=== PATIENT | male | born 1980 | race Caucasian/White ===

== ENCOUNTER 2017-03-25 14:00 | Observation (INO) | payer OTHER ==
[~2017-03-25] VITALS: Ht 185.4 cm; Wt 87.0 kg
[~2017-03-25 14:00] MED LIST: IBUP-103 PO
[2017-03-25] MEDS ORDERED: MoRPHine SULFATE 4 MG/ML 1 ML CARP\\VIAL IV STA (14:52)
[2017-03-25] MEDS ORDERED: ONDANSETRON INJ 2 MG/ML 2 ML VIAL IV STA (14:52)
[2017-03-25] MEDS ORDERED: SODIUM CHLORIDE 0.9% 1000ML 1,000 ML IV STA (14:52)
[2017-03-25 15:09] LABS: BASO % 0.4 %; BASO ABS # 0.03 K/uL (0-0.2); COMPLETE YES; EOS % 1.2 %; HEMATOCRIT 45.5 % (42-52); IG% 0.1 %; LYMPH % 39.6 %; MEAN CELL VOLUME 84.3 fL (80-100); MEAN CORPUSCULAR HEMOGLOBIN 28.3 pg (25-34); MEAN CORPUSCULAR HGB CONC 33.6 g/dl (32-36); MEAN PLATELET VOLUME 9.7 fL (7.4-10.4); MONO % 7.2 %; NEUT % 51.5 %; PLATELET COUNT 177 K/uL (130-400); WHITE BLOOD COUNT 7.82 K/uL (4.8-10.8)
[2017-03-25 15:29] LABS: BUN/CREATININE RATIO 14.9 (10-20); CALCIUM 9.5 mg/dl (8.5-10.1); CREATININE 1.1 mg/dl (0.60-1.40); POTASSIUM 4.2 mmol/L (3.5-5.1)
[2017-03-25 15:33] LABS: URINE APPEARANCE CLEAR (CLEAR); URINE BILIRUBIN NEG (NEG); URINE COLOR YELLOW; URINE NITRITE NEG (NEG); URINE PH 7.5 (4.5-7.5); URINE SPECIFIC GRAVITY 1.023 (1.000-1.030); UROBILINOGEN NEG (NEG); ZZUR CULT IF INDIC CLEAN CATCH NO
[2017-03-25 15:35] LABS: MANUAL MICROSCOPIC REQUIRED? NO; REVIEW REQ? NO
--- NOTE | 2017-03-25 15:49 | DIAGNOSTIC IMAGING REPORT ---
LUMBAR SPINE WITHOUT HISTORY:36 yearsMalelow back pain COMPARISON: CT abdomen and pelvis of same day. TECHNIQUE: Multiple axial CT images of the lumbar spine were obtained without IV contrast. FINDINGS: The vertebral body heights are well-maintained without compression deformity. There is minimal posterior endplate spurring at the L4 level. There is mild facet arthropathy at several levels, notably at L4-L5 and L5-S1. No pars defect or spondylolisthesis identified. Transverse processes appear intact. The imaged intra-abdominal intrapelvic structures demonstrate no acute abnormality. T12-L1; L1-L2; L2-L3; L3-L4: No significant central canal or foraminal narrowing identified. L4-L5:. Broad-based posterior disc bulge causes mild central canal and mild foraminal narrowing. L5-S1: Small circumferential disc bulge effaces the ventral thecal sac without central canal or foraminal narrowing. IMPRESSION: 1. No acute fracture or dislocation of the lumbar spine. 2. Limited evaluation of the central canal without intrathecal contrast demonstrates an apparent broad-based posterior disc bulge at L4-L5 which causes mild central canal and mild bilateral foraminal narrowing. This could be evaluated with follow-up MRI if clinically indicated. 3. Mild endplate spurring and facet arthropathy of the lower lumbar spine. The above report was generated using voice recognition software. It may contain grammatical, syntax or spelling errors. Electronically signed by: Bry Carlson 03/25/2017 3:48 PM Dictated Date/Time: 03/25/2017 3:43 PM
--- NOTE | 2017-03-25 15:55 | DIAGNOSTIC IMAGING REPORT ---
CT SCAN OF THE ABDOMEN AND PELVIS WITHOUT IV CONTRAST CLINICAL HISTORY: Left flank pain. COMPARISON STUDY: Abdominal ultrasound dated 05/11/2015. TECHNIQUE: CT scan of the abdomen and pelvis is performed from the lung bases to the proximal femora. Images are reviewed in the axial, sagittal, and coronal planes. IV contrast was not administered for this examination. Automated dose control exposure was utilized. CT DOSE: 808.03 mGy.cm FINDINGS: Lung bases: The heart is normal in size and without pericardial effusion. The lung bases are clear noting dependent atelectasis. Liver: The unenhanced liver is normal in size, contour, and attenuation. There is no intrahepatic biliary ductal dilatation. Gallbladder: Unremarkable. Spleen: The spleen is mildly enlarged measuring 14.4 cm in length. Pancreas: Unremarkable. Adrenal glands: Unremarkable. Kidneys: The unenhanced kidneys are normal in size and without hydronephrosis. There are no renal calculi identified. There is no evidence of contour deforming renal mass lesion. Abdominal vasculature: The abdominal aorta is normal in course and caliber. Bowel: The small bowel and colon are normal in course and caliber. There is mild to moderate colonic fecal retention. The appendix is seen on axial image #302. The appendix is mildly distended and fluid-filled measuring up to 9 mm. Faint periappendiceal inflammation is identified. The appearance is concerning for mild acute appendicitis. There is no evidence of abscess. Peritoneum: There is no intraperitoneal free air or abdominal ascites. There is a fat-containing umbilical hernia. Lymphadenopathy: None. Pelvic viscera: The bladder, prostate, and seminal vesicles are normal as visualized. Skeletal structures: No lytic or blastic lesions are seen. A large posterior disc bulge is seen at L4-L5. IMPRESSION: 1. Findings are concerning for mild acute appendicitis. Surgical consultation is advised. If this does not fit the clinical presentation consider short-term CT follow-up of the pelvis only with oral and IV contrast. 2. No renal calculi are identified as clinically queried. 3. Mild splenomegaly. Electronically signed by: Jose Red M.D. 03/25/2017 3:54 PM Dictated Date/Time: 03/25/2017 3:49 PM
--- NOTE | 2017-03-25 16:38 | EMERGENCY ROOM VISIT NOTE ---
History First contact with patient: 14:26 Chief Complaint: BACK PAIN Stated Complaint: STRONG BACK PAIN History of Present Illness The patient is a 36 year old male who presents to the Emergency Room with complaints of back pain. The patient's pain started 3 days ago. He denies any falls or injuries. He states the pain is in the low back and radiates into the bilateral hips. He states that he has also had some abdominal discomfort. He states the pain occasionally radiates into his groin. He rates his discomfort a 10/10. He denies any fevers. He denies any pain in his chest or trouble breathing. He denies any vomiting. He denies any loss of bowel or bladder control. He denies any urinary urgency, frequency, dysuria or hematuria. He denies any loss of bowel or bladder control. He denies diarrhea. The patient had similar back pain a few years ago but it was not as severe. Review of Systems A 10 system review of systems was completed with positives and pertinent negatives listed in the HPI. Past Medical/Surgical History Medical Problems: (1) Abdominal pain patient denies Family History Patient reports no known family medical history. Social History Smoking Status: Never Smoker Marital Status: Housing Status: lives with family Occupation Status: employed Current/Historical Medications Scheduled Naproxen (Naproxen), 1 TAB PO BID Allergies Coded Allergies: No Known Allergies (Unverified , 03/25/17) Physical Exam Vital Signs Date Time Temp Pulse Resp B/P (MAP) Pulse Ox O2 Delivery O2 Flow Rate FiO2 03/25/17 20:14 61 18 105/66 97 Room Air 03/25/17 18:11 62 16 116/60 96 03/25/17 16:20 55 16 116/65 96 03/25/17 14:18 36.6 78 18 116/80 95 Room Air Pain Rating (0-10): 6.0 Physical Exam VITALS: Vitals are noted on the nurse's note and reviewed by myself. Vital signs stable. GENERAL:This is a 36 year old male, in no acute distress, nondiaphoretic, well- developed well-nourished. SKIN: The skin was without rashes, erythema, edema, or bruising. There is no tenting of the skin. Capillary reflex less than 2 seconds. HEAD: Normocephalic atraumatic. EARS: External auditory canals clear, tympanic membranes pearly rashid without erythema or effusion bilaterally. EYES: Pupils equal round and reactive to light and accommodation. Conjunctivae without injection, sclerae without icterus. Extraocular movements intact. NOSE: Patent, turbinates without inflammation or discharge. MOUTH: Mucous membranes moist. Tonsils are not enlarged. Pharynx without erythema or exudate. Uvula midline. Airway patent. Tongue does not deviate. NECK: Supple without nuchal rigidity. Cervical spine is nontender. No JVD. HEART: Regular rate and rhythm without murmurs gallops or rubs. LUNGS: Clear to auscultation bilaterally without wheezes, rales or rhonchi. No retractions or accessory muscle use. ABDOMEN: Positive bowel sounds x 4. Soft, mild left sided abdominal tenderness , without masses or organomegaly. MUSCULOSKELETAL: No muscle atrophy, erythema, or edema noted. Full range of motion without joint tenderness in all extremities. No tenderness to palpation. Normal gait. Strength 5/5 throughout. NEURO: Patient was alert and oriented to person place and time. Normal sensation to light and sharp touch. Deep tendon reflexes 2+ throughout. No focal neurological deficits. Medical Decision & Procedures ER Provider Diagnostic Interpretation: [~ rep ct add3]] LUMBAR SPINE WITHOUT HISTORY:36 yearsMalelow back pain COMPARISON: CT abdomen and pelvis of same day. TECHNIQUE: Multiple axial CT images of the lumbar spine were obtained without IV contrast. FINDINGS: The vertebral body heights are well-maintained without compression deformity. There is minimal posterior endplate spurring at the L4 level. There is mild facet arthropathy at several levels, notably at L4-L5 and L5-S1. No pars defect or spondylolisthesis identified. Transverse processes appear intact. The imaged intra-abdominal intrapelvic structures demonstrate no acute abnormality. T12-L1; L1-L2; L2-L3; L3-L4: No significant central canal or foraminal narrowing identified. L4-L5:. Broad-based posterior disc bulge causes mild central canal and mild foraminal narrowing. L5-S1: Small circumferential disc bulge effaces the ventral thecal sac without central canal or foraminal narrowing. IMPRESSION: 1. No acute fracture or dislocation of the lumbar spine. 2. Limited evaluation of the central canal without intrathecal contrast demonstrates an apparent broad-based posterior disc bulge at L4-L5 which causes mild central canal and mild bilateral foraminal narrowing. This could be evaluated with follow-up MRI if clinically indicated. 3. Mild endplate spurring and facet arthropathy of the lower lumbar spine. CT SCAN OF THE ABDOMEN AND PELVIS WITHOUT IV CONTRAST CLINICAL HISTORY: Left flank pain. COMPARISON STUDY: Abdominal ultrasound dated 05/11/2015. TECHNIQUE: CT scan of the abdomen and pelvis is performed from the lung bases to the proximal femora. Images are reviewed in the axial, sagittal, and coronal planes. IV contrast was not administered for this examination. Automated dose control exposure was utilized. CT DOSE: 808.03 mGy.cm FINDINGS: Lung bases: The heart is normal in size and without pericardial effusion. The lung bases are clear noting dependent atelectasis. Liver: The unenhanced liver is normal in size, contour, and attenuation. There is no intrahepatic biliary ductal dilatation. Gallbladder: Unremarkable. Spleen: The spleen is mildly enlarged measuring 14.4 cm in length. Pancreas: Unremarkable. Adrenal glands: Unremarkable. Kidneys: The unenhanced kidneys are normal in size and without hydronephrosis. There are no renal calculi identified. There is no evidence of contour deforming renal mass lesion. Abdominal vasculature: The abdominal aorta is normal in course and caliber. Bowel: The small bowel and colon are normal in course and caliber. There is mild to moderate colonic fecal retention. The appendix is seen on axial image #302. The appendix is mildly distended and fluid-filled measuring up to 9 mm. Faint periappendiceal inflammation is identified. The appearance is concerning for mild acute appendicitis. There is no evidence of abscess. Peritoneum: There is no intraperitoneal free air or abdominal ascites. There is a fat-containing umbilical hernia. Lymphadenopathy: None. Pelvic viscera: The bladder, prostate, and seminal vesicles are normal as visualized. Skeletal structures: No lytic or blastic lesions are seen. A large posterior disc bulge is seen at L4-L5. IMPRESSION: 1. Findings are concerning for mild acute appendicitis. Surgical consultation is advised. If this does not fit the clinical presentation consider short-term CT follow-up of the pelvis only with oral and IV contrast. 2. No renal calculi are identified as clinically queried. 3. Mild splenomegaly. Laboratory Results 03/25/17 15:00 Test 03/25/17 15:00 03/25/17 15:05 Anion Gap 8.0 mmol/L (3-11) Est Creatinine Clear Calc Drug Dose 105.9 ml/min Estimated GFR () 100.3 Estimated GFR (Non- 86.5 BUN/Creatinine Ratio 14.9 (10-20) Calcium Level 9.5 mg/dl (8.5-10.1) Total Bilirubin 0.4 mg/dl (0.2-1) Aspartate Amino Transf (AST/SGOT) 16 U/L (15-37) Alanine Aminotransferase (ALT/SGPT) 33 U/L (12-78) Alkaline Phosphatase 45 U/L (45-117) Total Protein 7.5 gm/dl (6.4-8.2) Albumin 3.8 gm/dl (3.4-5.0) Globulin 3.7 gm/dl (2.5-4.0) Albumin/Globulin Ratio 1.0 (0.9-2) Urine Color YELLOW Urine Appearance CLEAR (CLEAR) Urine pH 7.5 (4.5-7.5) Urine Specific [place] 1.023 (1.000-1.030) Urine Protein NEG (NEG) Urine Glucose (UA) NEG (NEG) Urine Ketones NEG (NEG) Urine Occult Blood NEG (NEG) Urine Nitrite NEG (NEG) Urine Bilirubin NEG (NEG) Urine Urobilinogen NEG (NEG) Urine Leukocyte Esterase NEG (NEG) Medications Administered Medications (Trade) Dose Ordered Sig/Stefani Route Start Time Stop Time Status Last Admin Dose Admin Sodium Chloride 1,000 ml @ 999 mls/hr Q1H1M STAT IV 03/25/17 14:52 03/25/17 15:52 DC 03/25/17 15:15 999 MLS/HR Morphine Sulfate (MoRPHine SULFATE INJ) 4 mg NOW STAT IV 03/25/17 14:52 03/25/17 14:54 DC 03/25/17 15:17 4 MG Ondansetron HCl (Zofran Inj) 4 mg NOW STAT IV 03/25/17 14:52 03/25/17 14:54 DC 03/25/17 15:16 4 MG ED Course The patient was seen and examined. Previous visits were reviewed. The patient does not have a fever or leukocytosis. He does not have any significant electrolyte abnormalities. Urinalysis is negative. The patient was given 4 mg IV morphine with good improvement in his pain The patient presents to the emergency department with left-sided flank and back pain. My initial concern was for kidney stone or possibly bulging or herniated disc. CT imaging was obtained and does reveal a bulging disc at L4-L5. There is no evidence for kidney stone. However, there is enlargement of the appendix and the radiologist suggests possible acute appendicitis. I reevaluated the patient. He is not significantly tender in the right lower quadrant but states he has some pain there. At this time, I did ask my attending, , to evaluate the patient. He recommends repeating the CT scan with IV and oral contrast. At this time, the patient was signed out to Liv Garay PA-C. Please see her dictation for disposition. Medical Decision DIFFERENTIAL DIAGNOSIS: Hepatitis, cholecystitis, cholangitis, biliary colic, pancreatitis, pneumonia, subdiaphragmatic abscess, appendicitis, inguinal hernia , nephrolithiasis, inflammatory bowel disease, mesenteric adenitis, peptic ulcer disease, GERD, gastritis, pancreatitis, myocardial infarction, pericarditis, ruptured aortic aneurysm, appendicitis, gastroenteritis, bowel obstruction, splenic infarct, diverticulitis, mesenteric ischemia, metabolic, peritonitis,Lumbar strain, degenerative disc disease, spondylolisthesis, herniated disc, spinal stenosis, osteoporosis, fracture, cauda equina syndrome, neoplasm, infection, inflammatory arthritis, among others. Impression Primary Impression: Bulging lumbar disc Additional Impression: Abdominal pain Departure Information Dispostion Admitted as an inpatient Prescriptions Naproxen (NAPROXEN) 500 Mg Tab 1 TAB PO BID for 30 Days, #60 TAB 1 Refill Prov: Mehul Fuentes D.O. 03/26/17 Referrals Chace Krueger III, CRNP (PCP) Patient Instructions My [facility] Problem Qualifiers Additional Impression: Abdominal pain Abdominal location: lower abdomen, unspecified Qualified Codes: R10.30 - Lower abdominal pain, unspecified
[2017-03-25] MEDS ORDERED: OPTIRAY 320 IV PRN (17:15)
--- NOTE | 2017-03-25 18:51 | EMERGENCY ROOM VISIT NOTE ---
ED Visit Note First contact with patient: 14:26 The patient was seen and examined with Destinee Yañez PA-C. I agree with the history, physical and findings. Please see the note for disposition and details. The patient presented with back pain that he has had before. His examination did not reveal any focal findings. Equivocal straight leg raise. No saddle anesthesia. He did have some abdominal tenderness. His CT scan was concerning for possible appendicitis. Because of the equivocal examination he underwent a full prep. Radiology raise concerns about early appendicitis. The patient had a consult placed with Dr. Fuentes in general surgery. The patient will be admitted for further management.
--- NOTE | 2017-03-25 19:54 | EMERGENCY ROOM VISIT NOTE ---
ED Visit Note First contact with patient: 17:15 Care assumed from Clair Yañez PA-C at shift change. CT abdomen/Pelvis with IV and PO contrast pending at that time. CT being performed due to equivocal examination, and possible abnormality noted on CT Abd /Pelvis without contrast for stone. CT Abdomen/Pelvis with IV and PO contrast results, interpreted by radiology: FINDINGS: Lower chest: The heart is normal in size and configuration, without pericardial effusion. The lung bases and pleural spaces are clear. Liver: The contrast-enhanced liver is normal in size, contour, and attenuation. There is no intrahepatic biliary ductal dilatation. The hepatic veins and portal veins are patent. Gallbladder: Unremarkable. Spleen: The spleen is the upper limits of normal in size Pancreas: Unremarkable. Adrenal glands: Unremarkable. Kidneys: There is symmetric renal cortical enhancement. The kidneys are normal in size without hydronephrosis. Bowel: There are no transition zones indicate bowel obstruction. There is no acute diverticulitis. The appendix is mildly dilated measuring 1 cm. There is mild proximal wall hyperenhancement. The patient was brought back for delayed images. The appendix does not fill with contrast. There is very subtle periappendiceal stranding. Peritoneum: There is no intraperitoneal free air or abdominal ascites. Vasculature: The abdominal aorta is normal in course and caliber. Adenopathy: None. Pelvic viscera: The bladder, and pelvic viscera are unremarkable. Skeletal structures: There is a broad-based central disc protrusion at the L4-5 level. IMPRESSION: 1. Dilated appendix measuring 1 cm. There is mild hyperenhancement of the appendiceal base. The appendix does not opacify with contrast. In the setting of right lower quadrant abdominal pain, the findings are viewed as suspicious for acute appendicitis. Surgical consultation is recommended. I contacted the surgeon on-call, and discussed the case with him. I discussed all findings and asked his recommendation on admission versus outpatient follow-up.states that he will admit the patient for 23 hour observation at this time. He is uncertain if this is an acute appendicitis, as the patient does not have with blood cell count, fever, and examination is equivocal. He states in the morning he will recheck some labs, and consider discharge with outpatient follow-up if everything continues to remain normal. I discussed this with the patient and his significant other at bedside. The patient is in agreement that this is a reasonable plan patient will be further evaluated by surgery in the morning. Dr. Fuentes states he will take care of admission orders at this time. Please see his dictation for further disposition and treatment. Current/Historical Medications No Active Prescriptions or Reported Meds Allergies Coded Allergies: No Known Allergies (Unverified , 03/25/17) Vital Signs Date Time Temp Pulse Resp B/P (MAP) Pulse Ox O2 Delivery O2 Flow Rate FiO2 03/25/17 22:54 54 18 112/58 96 Room Air 03/25/17 20:14 61 18 105/66 97 Room Air 03/25/17 18:11 62 16 116/60 96 03/25/17 16:20 55 16 116/65 96 03/25/17 14:18 36.6 78 18 116/80 95 Room Air Laboratory Results 03/25/17 15:00 Red Blood Count 5.40, Mean Corpuscular Volume 84.3, Mean Corpuscular Hemoglobin 28.3, Mean Corpuscular Hemoglobin Concent 33.6, Mean Platelet Volume 9.7, Neutrophils (%) (Auto) 51.5, Lymphocytes (%) (Auto) 39.6, Monocytes (%) (Auto) 7.2, Eosinophils (%) (Auto) 1.2, Basophils (%) (Auto) 0.4, Neutrophils # (Auto) 4.03, Lymphocytes # (Auto) 3.10, Monocytes # (Auto) 0.56, Eosinophils # (Auto) 0.09, Basophils # (Auto) 0.03 03/25/17 15:00 Test 03/25/17 15:00 03/25/17 15:05 White Blood Count 7.82 K/uL (4.8-10.8) Red Blood Count 5.40 M/uL (4.7-6.1) Hemoglobin 15.3 g/dL (14.0-18.0) Hematocrit 45.5 % (42-52) Mean Corpuscular Volume 84.3 fL (80-100) Mean Corpuscular Hemoglobin 28.3 pg (25-34) Mean Corpuscular Hemoglobin Concent 33.6 g/dl (32-36) Platelet Count 177 K/uL (130-400) Mean Platelet Volume 9.7 fL (7.4-10.4) Neutrophils (%) (Auto) 51.5 % Lymphocytes (%) (Auto) 39.6 % Monocytes (%) (Auto) 7.2 % Eosinophils (%) (Auto) 1.2 % Basophils (%) (Auto) 0.4 % Neutrophils # (Auto) 4.03 K/uL (1.4-6.5) Lymphocytes # (Auto) 3.10 K/uL (1.2-3.4) Monocytes # (Auto) 0.56 K/uL (0.11-0.59) Eosinophils # (Auto) 0.09 K/uL (0-0.5) Basophils # (Auto) 0.03 K/uL (0-0.2) RDW Standard Deviation 38.7 fL (36.4-46.3) RDW Coefficient of Variation 12.7 % (11.5-14.5) Immature Granulocyte % (Auto) 0.1 % Immature Granulocyte # (Auto) 0.01 K/uL (0.00-0.02) Anion Gap 8.0 mmol/L (3-11) Est Creatinine Clear Calc Drug Dose 105.9 ml/min Estimated GFR () 100.3 Estimated GFR (Non- 86.5 BUN/Creatinine Ratio 14.9 (10-20) Calcium Level 9.5 mg/dl (8.5-10.1) Total Bilirubin 0.4 mg/dl (0.2-1) Aspartate Amino Transf (AST/SGOT) 16 U/L (15-37) Alanine Aminotransferase (ALT/SGPT) 33 U/L (12-78) Alkaline Phosphatase 45 U/L (45-117) Total Protein 7.5 gm/dl (6.4-8.2) Albumin 3.8 gm/dl (3.4-5.0) Globulin 3.7 gm/dl (2.5-4.0) Albumin/Globulin Ratio 1.0 (0.9-2) Urine Color YELLOW Urine Appearance CLEAR (CLEAR) Urine pH 7.5 (4.5-7.5) Urine Specific [place] 1.023 (1.000-1.030) Urine Protein NEG (NEG) Urine Glucose (UA) NEG (NEG) Urine Ketones NEG (NEG) Urine Occult Blood NEG (NEG) Urine Nitrite NEG (NEG) Urine Bilirubin NEG (NEG) Urine Urobilinogen NEG (NEG) Urine Leukocyte Esterase NEG (NEG) Medications Administered Medications (Trade) Dose Ordered Sig/Stefani Route Start Time Stop Time Status Last Admin Dose Admin Sodium Chloride 1,000 ml @ 999 mls/hr Q1H1M STAT IV 03/25/17 14:52 03/25/17 15:52 DC 03/25/17 15:15 999 MLS/HR Morphine Sulfate (MoRPHine SULFATE INJ) 4 mg NOW STAT IV 03/25/17 14:52 03/25/17 14:54 DC 03/25/17 15:17 4 MG Ondansetron HCl (Zofran Inj) 4 mg NOW STAT IV 03/25/17 14:52 03/25/17 14:54 DC 03/25/17 15:16 4 MG Departure Information Impression Primary Impression: Abdominal pain Dispostion Being Evaluated By Surgeon (Pt. admitted for observation under Dr. Fuentes) Condition GOOD Prescriptions No Active Prescriptions or Reported Meds Referrals Chace Krueger III, CRNP (PCP) Mehul Fuentes D.O. Patient Instructions My [facility] Problem Qualifiers Primary Impression: Abdominal pain Abdominal location: lower abdomen, unspecified Qualified Codes: R10.30 - Lower abdominal pain, unspecified
--- NOTE | 2017-03-25 22:07 | DIAGNOSTIC IMAGING REPORT ---
CT ABD/PELVIS IV AND ORAL CONT CLINICAL HISTORY: Lower abdominal pain. Abnormal appendix on noncontrast imaging. COMPARISON STUDY: Noncontrast CT scan dated 03/25/2017 TECHNIQUE: Following the IV administration of 92 mL of Optiray-[id number], CT scan of the abdomen and pelvis was performed from the lung bases to the proximal femurs. Images are reviewed in the axial, sagittal, and coronal planes. IV contrast was administered without complication. CT DOSE: 453.91 mGy.cm FINDINGS: Lower chest: The heart is normal in size and configuration, without pericardial effusion. The lung bases and pleural spaces are clear. Liver: The contrast-enhanced liver is normal in size, contour, and attenuation. There is no intrahepatic biliary ductal dilatation. The hepatic veins and portal veins are patent. Gallbladder: Unremarkable. Spleen: The spleen is the upper limits of normal in size Pancreas: Unremarkable. Adrenal glands: Unremarkable. Kidneys: There is symmetric renal cortical enhancement. The kidneys are normal in size without hydronephrosis. Bowel: There are no transition zones indicate bowel obstruction. There is no acute diverticulitis. The appendix is mildly dilated measuring 1 cm. There is mild proximal wall hyperenhancement. The patient was brought back for delayed images. The appendix does not fill with contrast. There is very subtle periappendiceal stranding. Peritoneum: There is no intraperitoneal free air or abdominal ascites. Vasculature: The abdominal aorta is normal in course and caliber. Adenopathy: None. Pelvic viscera: The bladder, and pelvic viscera are unremarkable. Skeletal structures: There is a broad-based central disc protrusion at the L4-5 level. IMPRESSION: 1. Dilated appendix measuring 1 cm. There is mild hyperenhancement of the appendiceal base. The appendix does not opacify with contrast. In the setting of right lower quadrant abdominal pain, the findings are viewed as suspicious for acute appendicitis. Surgical consultation is recommended. Electronically signed by: Dony Allen M.D. 03/25/2017 10:05 PM Dictated Date/Time: 03/25/2017 7:48 PM
[2017-03-25] MEDS ORDERED: MoRPHine SULFATE 4 MG/ML 1 ML CARP\\VIAL IV PRN (22:30)
[2017-03-25] MEDS ORDERED: MoRPHine SULFATE 2 MG/ML CARP IV PRN (22:30)
[2017-03-25] MEDS ORDERED: ONDANSETRON INJ 2 MG/ML 2 ML VIAL IV PRN (22:30)
[2017-03-25] MEDS ORDERED: IV FLUIDS COMPLETED PRN (23:00)
[2017-03-25 23:39] VITALS: BP 120/79; PULSE 58; TEMP 36.6; Ht 185.4 cm; Wt 87.0 kg
[2017-03-26] MEDS: D5W AND 1/2NSS + 20MEQ KCL 1,000 ML IV SCH ×2 (00:07→07:44)
[2017-03-26 06:42] LABS: BASO % 0.2 %; BASO ABS # 0.02 K/uL (0-0.2); COMPLETE YES; LYMPH % 33.6 %; LYMPH ABS # 3.12 K/uL (1.2-3.4); MEAN CELL VOLUME 85.2 fL (80-100); MEAN CORPUSCULAR HEMOGLOBIN 28.6 pg (25-34); MEAN CORPUSCULAR HGB CONC 33.6 g/dl (32-36); MONO % 8.2 %; PLATELET COUNT 166 K/uL (130-400); RED BLOOD COUNT 5.28 M/uL (4.7-6.1); WHITE BLOOD COUNT 9.29 K/uL (4.8-10.8)
[2017-03-26 08:09] VITALS: BP 110/78; PULSE 58; TEMP 36.6; O2SAT 94
--- NOTE | 2017-03-26 08:09 | Discharge Instructions ---
Discharge Instructions Date of Service Mar 26, 2017. Admission Reason for Admission: Abdominal Pain Discharge Discharge Diagnosis / Problem: back pain Discharge Goals Goal(s): Decrease discomfort, Improve function Activity Recommendations Activity Limitations: as noted below Lifting Limitations: until after follow-up appointment Exercise/Sports Limitations: until after follow-up appointment May Resume Sexual Activity: when tolerated Shower/Bathe: no limitations . Instructions / Follow-Up Instructions / Follow-Up call PCP today regarding back pain...if pain worsens or changes call pcp or return to the emergency room Current Hospital Diet Patient's current hospital diet: Discharge Diet Recommended Diet: Regular Diet Pending Studies Studies pending at discharge: no Medical Emergencies . Who to Call and When: Medical Emergencies: If at any time you feel your situation is an emergency, please call 911 immediately. . Non-Emergent Contact Non-Emergency issues call your: Primary Care Provider Call Non-Emergent contact if: temperature is above 101, your pain is not controlled, your pain is worsening . "Provider Documentation" section prepared by Mehul Fuentes. . VTE Core Measure Inpt VTE Proph given/why not?: Treatment not indicated
[2017-03-26 08:12] VITALS: O2SAT 94
--- NOTE | 2017-03-26 08:12 | History and Physical ---
History & Physical Date Mar 26, 2017. History of Present Illness The patient is a 36 year old male with complaints of back pain for 24 hours with radiation into the back of his legs... yesterday he had radiation into his lower abdomen and legs...today he has no radiation into his abdomen. pain only located in his lower back and only when moving/ambulating. no n/v. Past Medical/Surgical History Medical Problems: (1) Abdominal pain Additional History Hepatic Disease: No Endocrine Disorder: No Kidney Disease: No Hypertension: No Heart Disease: No Bleeding Tendencies: No Infectious Diseases: No Allergies Coded Allergies: No Known Allergies (Unverified , 03/25/17) Home Medications No Active Prescriptions or Reported Meds Physical Examination Skin: warm/dry Eyes: normal inspection, EOMI Head: normocephalic Neck: supple Respiratory/Chest: no respiratory distress Abdomen / GI: normal bowel sounds, non tender Neurologic/Psych: alert, oriented x 3 Diagnosis pt without any abdominal pain today. CRP was normal. WBC still normal and afebrile. Highly doubt appendicitis. will d/c home with nsaids and f/u with pcp. if pain changes or worsens he is to call his pcp or return to ER. pt agrees with plan.
[2017-03-26] MEDS ORDERED: NAPR500T3 PO (08:14)
[2017-03-26 08:37] VITALS: BP 110/78; PULSE 58; TEMP 36.6; O2SAT 94
--- NOTE | 2017-04-08 14:18 | DISCHARGE SUMMARY ---
PRIMARY DISCHARGE DIAGNOSIS: Abdominal pain, rule out appendicitis. PROCEDURE PERFORMED: None. HOSPITAL COURSE: The patient is a 36-year-old male who presented to the Emergency Department with a 3-day history of primarily low back pain radiating to the hips bilateral. He had vague abdominal pain. His white count was normal at 7000. Noncontrast CT showed a dilated appendix, raising the possibility of appendicitis. Repeat CT a few hours later with contrast was again equivocal. He was admitted to the surgery service overnight for observation. The next morning his white count and C-reactive protein remained normal. His abdominal pain had resolved. He was able to tolerate a diet. He was stable for discharge. DISCHARGE INSTRUCTIONS: Discharge home. Follow up with his PCP for back pain or return to the Emergency Department if abdominal pain returns. DISCHARGE MEDICATIONS: Naprosyn 500 mg p.o. b.i.d.
== END 2017-03-26 09:04 | disposition home or self-care (01) ==
LOC: C.EDB 14:02 → C.MSN 22:29 → ENRESERV 22:46
PROVIDERS: ADMIT Surgery; ATTEND Surgery
DX: R10.9 Unspecified abdominal pain (principal); M54.9 Dorsalgia, unspecified